=== PATIENT | female | born 1995 | race Caucasian/White ===

== ENCOUNTER 2017-07-15 16:33 | Emergency (ER) | payer OTHER ==
--- NOTE | 2017-07-15 17:07 | ED Physician Documentation ---
PD HPI GI BLEED - Stated complaint Stated Complaint: FEMALE - Chief complaint Chief Complaint: General - History obtained from History obtained from: Patient - History of Present Illness Timing - onset: How many days ago (2) Timing - duration: Days (2) Timing - details: Abrupt onset, Still present Associated symptoms: Diarrhea (soft to loose stools with some mucous, and noted red blood with stool. No formed stool the past 2-3 days. No rectal pain nor abd pain. No vomiting. No prior similar (has had red with wiping due to hemorrhoids in the past, but this is diffferent).). No: Near syncope / syncope Contributing factors: Travel (visiting from out of state the past week; returning in 1 1/2 weeks.). No: Sick contact, Bad food, Recent antibiotics, Alcohol use Similar symptoms before: Has not had sx before Recently seen: Not recently seen Review of Systems Constitutional: denies: Fever, Chills, Myalgias Nose: denies: Rhinorrhea / runny nose, Congestion Throat: denies: Sore throat Respiratory: denies: Cough GI: reports: Diarrhea, Bloody / black stool. denies: Abdominal Pain, Abdominal Swelling, Nausea, Vomiting : denies: Dysuria, Frequency Neurologic: denies: Generalized weakness, Near syncope PD PAST MEDICAL HISTORY - Past Medical History Past Medical History: Yes Cardiovascular: Valve disorder Musculoskeletal: Other Other Past Medical History: Muscular dystrophy, bicuspid aortic valve. - Past Surgical History Past Surgical History: No - Present Medications Home Medications: Ambulatory Orders Medication Instructions Recorded Confirmed Aripiprazole [Abilify] 15 mg PO DAILY 07/15/17 07/15/17 Diphenoxylate HCl/Atropine 1 each PO Q6H PRN #12 tablet 07/15/17 [Diphenoxylate-Atrop 2.5-0.025] Duloxetine HCl [Cymbalta] 60 mg PO BID 07/15/17 07/15/17 Gabapentin 800 mg PO QID 07/15/17 07/15/17 Lamotrigine [Lamotrigine ER] 200 mg PO DAILY 07/15/17 07/15/17 Metronidazole [Flagyl] 500 mg PO BID #10 tablet 07/15/17 Naproxen 375 mg PO BID #20 tablet 07/15/17 Norelgestromin/Ethin.estradiol 1 mg TOP 07/15/17 [Xulane Patch] QUEtiapine [SEROquel] 100 mg PO QPM 07/15/17 07/15/17 clonazePAM [Clonazepam] 0.5 mg PO DAILY 07/15/17 07/15/17 - Allergies Allergies/Adverse Reactions: Allergies Allergy/AdvReac Type Severity Reaction Status Date / Time succinylcholine AdvReac Unknown Verified 07/15/17 16:40 - Social History Does the pt smoke?: No Smoking Status: Former smoker PD ED PE NORMAL - Vitals Vital signs reviewed: Yes - General General: Alert and oriented X 3, No acute distress, Well developed/nourished - HEENT HEENT: Ears normal, Pharynx benign - Neck Neck: Supple, no meningeal sign, No adenopathy - Cardiac Cardiac: RRR (fast rate), No murmur - Respiratory Respiratory: Clear bilaterally - Abdomen Abdomen: Normal bowel sounds, Soft, Non tender, Non distended - Female Female : Deferred - Rectal Rectal: Other (no hemorrhoids nor rectal tenderness. There is soft stool in vault with some mucous and red blood streaks. ) - Derm Derm: Normal color, Warm and dry - Extremities Extremities: No tenderness to palpate, Normal ROM s pain, No edema, No calf tenderness / cord - Neuro Neuro: Alert and oriented X 3, No motor deficit, Normal speech Results - Vitals Vitals: Vital Signs - 24 hr 07/15/17 07/15/17 16:38 19:13 Temperature 36.6 C Heart Rate 120 H 83 Respiratory 16 20 Rate Blood Pressure 120/96 H 112/77 O2 Saturation 99 98 Oxygen O2 Source Room air - Labs Labs: Laboratory Tests 07/15/17 07/15/17 07/15/17 17:43 17:43 17:43 WBC 8.9 RBC 4.39 Hgb 12.6 Hct 37.8 MCV 86.2 MCH 28.7 MCHC 33.3 RDW 13.4 Plt Count 277 MPV 7.7 L Neut # 6.4 Lymph # 2.0 Lares # 0.5 Eos # 0.1 Baso # 0.0 Absolute Nucleated RBC 0.00 Nucleated RBC % 0.0 ESR 11 Sodium 138 Potassium 3.8 Chloride 101 Carbon Dioxide 26 Anion Gap 11.0 BUN 9 Creatinine 0.3 L Estimated GFR (MDRD) 278 Glucose 92 Calcium 9.0 Total Bilirubin 0.3 AST 33 ALT 28 Alkaline Phosphatase 78 Total Protein 7.2 Albumin 3.8 Globulin 3.4 Albumin/Globulin Ratio 1.1 Lipase 17 L PD MEDICAL DECISION MAKING - ED course Complexity details: reviewed results, considered differential (abrupt bloody diarrhea. [place] another 1 1/2 weeks. I felt it more prudent to empirically treat as likely bacterial given the difficulty in follow up right now. She did not have BM in ED. ESR is normal, without prior episodes, so less likely Crohns or such. ), d/w patient Departure - Departure Disposition: Home, Self Care Clinical Impression: Bloody diarrhea Condition: Stable Record reviewed to determine appropriate education?: Yes Instructions: ED Hematochezia Stable Prescriptions: Diphenoxylate HCl/Atropine [Diphenoxylate-Atrop 2.5-0.025] 1 each PO Q6H PRN # 12 tablet PRN Reason: Diarrhea Metronidazole [Flagyl] 500 mg PO BID #10 tablet Naproxen 375 mg PO BID #20 tablet Comments: Drink lots of fluids. Presumably this would be an infectious cause and so we will treated with antibiotic, anti-inflammatory, antidiarrheal medicine. Recheck if not improved over the next few days. If improved, follow-up with your primary care back in [place] regarding any further testing or assessments. If you have persistent symptoms over the next several days or so, return and recheck with us. If you have persistent diarrhea, bring a stool sample back with you. Discharge Date/Time: 07/15/17 19:45
[2017-07-15 17:55] LABS: BASOPHILS % (AUTO) 0.3 %; EOSINOPHILS # (AUTO) 0.1 10^3/uL (0.0-0.7); EOSINOPHILS % (AUTO) 0.6 %; HGB - HEMOGLOBIN 12.6 g/dL (12.0-16.0); LYMPHOCYTES % (AUTO) 21.9 %; MEAN CORPUSCULAR HEMOGLOBIN 28.7 pg (27.0-31.0); MEAN CORPUSCULAR HGB CONC 33.3 g/dL (32.0-36.0); MEAN CORPUSCULAR VOLUME 86.2 fL (81.0-99.0); MEAN PLATELET VOLUME 7.7 fL (7.9-10.8); MONOCYTES # (AUTO) 0.5 10^3/uL (0.0-1.0); MONOCYTES % (AUTO) 5.7 %; NEUTROPHILS # (AUTO) 6.4 10^3/uL (1.5-6.6); NEUTROPHILS % (AUTO) 71.5 %; PLT - PLATELET COUNT 277 10^3/uL (130-450); RED BLOOD COUNT 4.39 10^6/uL (4.20-5.40); RED CELL DISTRIBUTION WIDTH 13.4 % (12.0-15.0); WHITE BLOOD COUNT 8.9 x10^3/uL (4.8-10.8)
[2017-07-15 18:03] LABS: ALBUMIN 3.8 g/dL (3.2-5.5); ALBUMIN/GLOBULIN RATIO 1.1 (1.0-2.2); BILIRUBIN,TOTAL 0.3 mg/dL (0.2-1.0); CREATININE 0.3 mg/dL (0.4-1.0); TOTAL PROTEIN 7.2 g/dL (6.7-8.2)
[2017-07-15 19:13] VITALS: BP 112/77
[2017-07-15] MEDS ORDERED: metroNIDAZOLE 250 MG TABLET PO STA (19:28)
[2017-07-15] MEDS ORDERED: NAPROXEN 250 MG TABLET PO STA (19:28)
== END 2017-07-15 19:45 | disposition home or self-care (01) ==
LOC: ED 16:33
DX: K92.1 Melena (principal); I38 Endocarditis, valve unspecified; G71.0 Muscular dystrophy; Z87.891 Personal history of nicotine dependence
CPT/HCPCS: 36415; 80053; 83690; 85025; 85651; 99283; A9270